=== PATIENT | female | born 1995 | race Caucasian/White ===

== ENCOUNTER 2022-09-22 14:14 | Emergency (ER) | payer OTHER, SELFPAY ==
[2022-09-22 14:27] VITALS: BP 137/78; PULSE 71; RESP 16; TEMP 36.9; O2SAT 100; BMI 30.4
--- NOTE | 2022-09-22 14:46 | DI.RAD.S_ITS ---
PROCEDURE: XR CHEST 1V INDICATIONS: chest pain TECHNIQUE: One view of the chest was acquired. COMPARISON: None. FINDINGS: Surgical changes and devices: None. Lungs and pleura: Lungs are clear. No pleural effusions or pneumothorax. Mediastinum: Mediastinal contours appear normal. Heart size is normal. Bones and chest wall: No suspicious bony lesions. Overlying soft tissues appear unremarkable. IMPRESSION: No acute cardiopulmonary abnormality. Approved by: Lauro Boyer M.D. on 09/22/2022 at 16:20
[2022-09-22 15:35] LABS: Add Manual Diff / Slide Review NO; Basophils Absolute Auto 0 /uL (0-100); Basophils Percent Auto 0.9 % (0-2); Eosinophils Absolute Auto 100 /uL (0-450); Eosinophils Percent Auto 2.3 % (2-4); Hematocrit 38.1 % (36-46); Hemoglobin 12.8 g/dL (12.0-16.0); Lymphocytes Absolute Auto 1800 /uL (1100-4500); Lymphocytes Percent Auto 33.5 % (25-40); Mean Corpuscular HGB Conc 33.7 % (30-36); Mean Corpuscular Hemoglobin 29.5 PG (26-34); Mean Corpuscular Volume 87.5 fL (80-100); Monocytes Absolute Auto 300 /uL (0-900); Monocytes Percent Auto 6.6 % (3-14); Neutrophils Absolute Auto 3000 /uL (1500-7000); Neutrophils Percent Auto 56.7 % (50-75); Platelet Count 280 X10^3/uL (150-400); Red Blood Cell Count 4.35 X10^6/uL (4.0-5.2); Red Cell Distribution Width 12.8 % (11.6-14.8); White Blood Cell Count 5.3 X10^3/uL (4.5-11.0)
[2022-09-22 15:45] LABS: Alanine Aminotransferase 30 IU/L (<35); Albumin 4.2 g/dL (3.5-5.0); Albumin Globulin Ratio 1.1 (1.0-2.8); Alkaline Phosphatase 63 U/L (38-126); Aspartate Aminotransferase 42 IU/L (14-36); BUN Creatinine Ratio 17.8 (6-22); Bilirubin Total 0.4 mg/dL (0.2-1.3); Blood Urea Nitrogen 16 mg/dL (7-17); Calcium 9.1 mg/dL (8.4-10.2); Carbon Dioxide 29 mmol/L (22-32); Chloride 102 mmol/L (98-107); Creatine Kinase 379 U/L (30-135); Estimated Glomerular Filt Rate > 60 mL/min (>60); Globulin 3.7 g/dL (1.7-4.1); Glucose 95 mg/dL (70-100); HEMOLYSIS 26 (0-50); INR 1.1 (0.9-1.3); Lipase 434 U/L (23-300); Potassium 3.8 mmol/L (3.4-5.1); Prothrombin Time 12.2 SECONDS (10.1-12.7); Sodium 136 mmol/L (137-145); Total Protein 7.9 g/dL (6.3-8.2)
[2022-09-22 15:48] LABS: PTT Partial Thromboplastin Tim 32 SECONDS (26-36)
[2022-09-22 15:55] LABS: Troponin I < 0.012 ng/mL (0.01-0.034)
[2022-09-22] MEDS: ACETAMINOPHEN 325 MG TABLET 975 MG PO (16:03)
[2022-09-22 18:16] LABS: HCG Quantitative /Beta subunit < 2.4 mIU/mL
--- NOTE | 2022-09-22 18:47 | ED_ITS ---
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 She has taken the lisinopril this morning. She notes that over the last 3 days she is been having headaches and intermittent episodes of chest pain. The chest pain does not seem to be exertional, positional or pleuritic. She reports no fevers, cough, chills. She is been having some nausea and an episode of emesis that caused a slight amount of burning through her esophagus. She does not report usual reflux or difficulties with any type of heartburn. Related Data Allergies Allergy/AdvReac Type Severity Reaction Status Date / Time No Known Drug Allergies Allergy Verified 09/22/22 17:42 Review of Systems Review of Systems Narrative: Pertinent positive and negative findings as per HPI Patient History Social History Smoking Status: Never smoker Smoking Status: Never smoker alcohol intake frequency: holidays/special occasions only Substance Use Type: does not use Exam Initial Vital Signs Initial Vital Signs: Vital Signs Temperature 98.5 F 09/22/22 14:27 Pulse Rate 71 09/22/22 14:27 Respiratory Rate 16 09/22/22 14:27 Blood Pressure 137/78 09/22/22 14:27 Pulse Oximetry 100 09/22/22 14:27 Oxygen Delivery Method Room Air 09/22/22 14:27 General: Healthy appearing, in no acute distress. Able to give a complete and coherent history. Well-nourished well-developed HEENT: Moist mucous membranes, normal sclera with reactive pupils, Neck: No JVD, supple Respiratory: Lungs are clear to auscultation, no wheezing no rales no rhonchi. Full and symmetrical air movement Cardiac: Regular rate and rhythm no murmurs with careful auscultation, no bruits Abdomen: Soft, minor tenderness in the epigastrium that reproduces the chest pain of which she is complaining, good bowel tones, no flank pain Skin: Warm and dry, no rashes Neurologic: Grossly neurologically intact with no obvious asymmetries or abnormalities Extremities: No trauma, well perfused Psych: Cooperative, appropriate insight and affect Course Orders Ordered: ED Orders 09/22/22 14:46 XR chest 1V Stat 09/22/22 14:54 EKG-12 Lead Stat 09/22/22 15:10 Complete Blood Count AUTO DIFF Stat Comprehensive Metabolic Panel Stat HCG Quantitative /Beta subunit Stat Lipase Stat Magnesium Stat PTT Partial Thromboplastin Satya Stat Prothrombin Time INR Stat Troponin & CK Cardiac Panel Stat 09/22/22 19:25 Urine Culture Stat Urine Microscopic Stat Discontinued Medications Acetaminophen (Acetaminophen 325 Mg Tablet) 975 mg PO NOW ONE Stop: 09/22/22 15:59 Last Admin: 09/22/22 16:03 Dose: 975 mg Documented By: ANNABEL Al Hydrox/Mg Hydrox/Simethicone (Mag Hydrox/Alum/Simeth 30 Ml Udc) 30 ml PO NOW ONE Stop: 09/22/22 18:56 Last Admin: 09/22/22 20:31 Dose: 30 ml Documented By: OMAR Aspirin (Aspirin 81 Mg Chew Tab) 324 mg PO NOW ONE Stop: 09/22/22 14:47 Pantoprazole Sodium (Pantoprazole 40 Mg Vial) 40 mg IV NOW ONE Stop: 09/22/22 18:56 Last Admin: 09/22/22 20:31 Dose: 40 mg Documented By: OMAR Vital Signs Vital signs: Vital Signs - 8 hr 09/22/22 14:27 09/22/22 20:23 Temperature 98.5 F Pulse Rate 71 60 Respiratory Rate 16 32 H Blood Pressure 137/78 171/89 H Pulse Oximetry 100 100 Oxygen Delivery Method Room Air MDM - Chest Pain Medical Records Data Medical records narrative: CC: Chest pain, uncertain prognosis acute finding Complicating co-morbidities: Recent diagnosis of tonsillitis possible diagnosis of hypertension, pyelonephritis, sepsis but records do need to be reviewed Data collected from: patient, Social determinants of health that may influence the patients condition: Language barrier Medical records reviewed: Unavailable Differential considered: Acute coronary syndrome, dissection, reflux, esophageal irritation from emesis yesterday, gastritis Exam documented above, pertinent findings include: Minor epigastric pain completely benign exam otherwise Lab Test results independently reviewed as above. Pertinent findings: CBC is unremarkable Chemistries are reassuring Troponin is undetectable Lipase is minimally elevated at 434 Quantitative hCG is undetectable Independently reviewed EKG as above Sinus bradycardia at a rate of 58 with no acute ischemic changes, normal intervals normal axis Imaging studies independently reviewed: Chest x-ray is unremarkable Consultations: Treatments: Re-evaluations: Discussion: 26-year-old woman with hypertension seen by primary care physician started appropriately on lisinopril 10 hydrochlorothiazide 12.5 combination pill and amlodipine 5 mg with follow-up scheduled. Because she has had chest pain for the last 3 days she was sent over for further evaluation. Workup is ent irely unremarkable and I do not suspect any evidence of congestive heart failure, stroke, hypertensive crisis, dissection, acute coronary syndrome or pulmonary embolism. She does have some minor tenderness along the left sternal border to palpation but describes this is very different from the intermittent chest pain that she would experienced previously. Her HEART score is 1 based on her blood pressure. In the absence of any acute neurologic findings or cognitive deficits aside from headache I do not think she needs additional evaluation or hospital admission. Blood pressures in the emergency department have been as low as 137/78 and as high as 171/89. Given the benign workup, follow-up available at home, available blood pressure medications. We will have her take her 5 mg of amlodipine this evening. She is given Toradol and Tylenol to help with her current headache and she is safe for discharge home Lab Data 09/22/22 15:10 09/22/22 15:10 Labs: Lab Results 09/22/22 09/22/22 09/22/22 Range/Units 15:10 15:10 15:10 WBC 5.3 (4.5-11.0) X10^3/uL RBC 4.35 (4.0-5.2) X10^6/uL Hgb 12.8 (12.0-16.0) g/dL Hct 38.1 (36-46) % MCV 87.5 (80-100) fL MCH 29.5 (26-34) PG MCHC 33.7 (30-36) % RDW 12.8 (11.6-14.8) % Plt Count 280 (150-400) X10^3/uL Neut % (Auto) 56.7 (50-75) % Lymph % (Auto) 33.5 (25-40) % Meriwether % (Auto) 6.6 (3-14) % Eos % (Auto) 2.3 (2-4) % Baso % (Auto) 0.9 (0-2) % Neut # (Auto) 3000 (3096-6983) /uL Lymph # (Auto) 1800 (6942-2893) /uL Meriwether # (Auto) 300 (0-900) /uL Eos # (Auto) 100 (0-450) /uL Baso # (Auto) 0 (0-100) /uL PT 12.2 (10.1-12.7) SECONDS INR 1.1 (0.9-1.3) APTT 32 (26-36) SECONDS Sodium 136 L (137-145) mmol/L Potassium 3.8 (3.4-5.1) mmol/L Chloride 102 (98-107) mmol/L Carbon Dioxide 29 (22-32) mmol/L BUN 16 (7-17) mg/dL Creatinine 0.90 (0.52-1.04) mg/dL Estimated GFR > 60 (>60) mL/min BUN/Creatinine Ratio 17.8 (6-22) Glucose 95 (70-100) mg/dL Calcium 9.1 (8.4-10.2) mg/dL Magnesium 2.0 (1.6-2.3) mg/dL Total Bilirubin 0.4 (0.2-1.3) mg/dL AST 42 H (14-36) IU/L ALT 30 (<35) IU/L Alkaline Phosphatase 63 (38-126) U/L Total Creatine Kinase 379 H (30-135) U/L Troponin I < 0.012 (0.01-0.034) ng/mL Total Protein 7.9 (6.3-8.2) g/dL Albumin 4.2 (3.5-5.0) g/dL Globulin 3.7 (1.7-4.1) g/dL Albumin/Globulin Ratio 1.1 (1.0-2.8) Lipase 434 H (23-300) U/L HCG, Quant mIU/mL Urine RBC (0-5/HPF) Urine WBC (0-5/HPF) Ur Squamous Epith Cells (0-5/HPF) Urine Bacteria (None) Ur Culture Indicated? 09/22/22 09/22/22 Range/Units 15:10 19:25 WBC (4.5-11.0) X10^3/uL RBC (4.0-5.2) X10^6/uL Hgb (12.0-16.0) g/dL Hct (36-46) % MCV (80-100) fL MCH (26-34) PG MCHC (30-36) % RDW (11.6-14.8) % Plt Count (150-400) X10^3/uL Neut % (Auto) (50-75) % Lymph % (Auto) (25-40) % Meriwether % (Auto) (3-14) % Eos % (Auto) (2-4) % Baso % (Auto) (0-2) % Neut # (Auto) (1438-3824) /uL Lymph # (Auto) (1754-0683) /uL Meriwether # (Auto) (0-900) /uL Eos # (Auto) (0-450) /uL Baso # (Auto) (0-100) /uL PT (10.1-12.7) SECONDS INR (0.9-1.3) APTT (26-36) SECONDS Sodium (137-145) mmol/L Potassium (3.4-5.1) mmol/L Chloride (98-107) mmol/L Carbon Dioxide (22-32) mmol/L BUN (7-17) mg/dL Creatinine (0.52-1.04) mg/dL Estimated GFR (>60) mL/min BUN/Creatinine Ratio (6-22) Glucose (70-100) mg/dL Calcium (8.4-10.2) mg/dL Magnesium (1.6-2.3) mg/dL Total Bilirubin (0.2-1.3) mg/dL AST (14-36) IU/L ALT (<35) IU/L Alkaline Phosphatase (38-126) U/L Total Creatine Kinase (30-135) U/L Troponin I (0.01-0.034) ng/mL Total Protein (6.3-8.2) g/dL Albumin (3.5-5.0) g/dL Globulin (1.7-4.1) g/dL Albumin/Globulin Ratio (1.0-2.8) Lipase (23-300) U/L HCG, Quant < 2.4 mIU/mL Urine RBC 1-5/hpf (0-5/HPF) Urine WBC 1-5/hpf (0-5/HPF) Ur Squamous Epith Cells 0-1 /hpf (0-5/HPF) Urine Bacteria Occasional (0-1) (None) Ur Culture Indicated? Specimen cultured Point of Care Testing Test Results Negative Urine Dip Bedside Urine Glucose Negative Bedside Urine Bilirubin - Negative Bedside Urine Ketone - Negative Urine Specific Correll 1.030 Bedside Urine Occult Blood - Negative Bedside Urine pH 6.0 Bedside Urine Protein - Negative Bedside Urine Urobilinogen - Negative Bedside Urine Nitrite - Negative Bedside Urine Leukocytes + 70 Esterase MDM Narrative Medical decision making narrative: CC: Chest pain, uncertain prognosis acute finding Complicating co-morbidities: Recent diagnosis of tonsillitis possible diagnosis of hypertension, pyelonephritis, sepsis but records do need to be reviewed Data collected from: patient, Social determinants of health that may influence the patients condition: Lang uage barrier Medical records reviewed: Unavailable Differential considered: Acute coronary syndrome, dissection, reflux, esophageal irritation from emesis yesterday, gastritis Exam documented above, pertinent findings include: Minor epigastric pain completely benign exam otherwise Lab Test results independently reviewed as above. Pertinent findings: CBC is unremarkable Chemistries are reassuring Troponin is undetectable Lipase is minimally elevated at 434 Quantitative hCG is undetectable Independently reviewed EKG as above Sinus bradycardia at a rate of 58 with no acute ischemic changes, normal intervals normal axis Imaging studies independently reviewed: Chest x-ray is unremarkable Consultations: Treatments: Oral amlodipine, parenteral Toradol, oral Tylenol Re-evaluations: Discussion: 26-year-old woman with hypertension seen by primary care physician started appropriately on lisinopril 10 hydrochlorothiazide 12.5 combination pill and amlodipine 5 mg with follow-up scheduled. Because she has had chest pain for the last 3 days she was sent over for further evaluation. Workup is entirely unremarkable and I do not suspect any evidence of congestive heart failure, stroke, hypertensive crisis, dissection, acute coronary syndrome or pulmonary embolism. She does have some minor tenderness along the left sternal border to palpation but describes this is very different from the intermittent chest pain that she would experienced previously. Her HEART score is 1 based on her blood pressure. In the absence of any acute neurologic findings or cognitive deficits aside from headache I do not think she needs additional evaluation or hospital admission. Blood pressures in the emergency department have been as low as 137/78 and as high as 171/89. Given the benign workup, follow-up available at home, available blood pressure medications. We will have her take her 5 mg of amlodipine this evening. She is given Toradol and Tylenol to help with her current headache and she is safe for discharge home Discharge Plan Departure Patient Disposition: Home Clinical Impression: Atypical chest pain, Hypertension, Headache Instructions: DI for High Blood Pressure, DI for Atypical Chest Pain Activity Restrictions/Additional Instructions: Thank you for coming in today With your elevated blood pressure and the 3 days of intermittent chest pain I believe further evaluation was entirely appropriate. Fortunately, I am not finding any signs of stroke, heart attack, heart attack like syndromes, blood clots in your lungs, kidney injury or any reasons for additional imaging or hospitalization today. I believe the medications that had been prescribed for you are an excellent 1st choice. They do typically need a couple of days to work. Please continue taki ng the lisinopril hydrochlorothiazide 1st thing in the morning and the amlodipine in the evening. I want you did check your blood pressure 2 to 3 hours after the lisinopril dosing in the morning and keep track of the numbers. Please check once daily and simply write the numbers down to discuss with your primary care doctor regarding your blood pressure treatment. If you find that you are getting worse or develop any new symptoms, please feel free to return to the emergency department for further evaluation. Stand Alone Forms: Patient Portal/API
[2022-09-22 20:07] LABS: Bacteria Urine Occasional (0-1); RBC Urine 1-5/HPF (0-5/HPF); Squamous Epithelial Cell Urine 0-1 /HPF (0-5/HPF); WBC Urine 1-5/HPF (0-5/HPF)
[2022-09-22 20:08] LABS: Culture Indicated Urine Specimen Cultured
[2022-09-22 20:23] VITALS: BP 171/89; PULSE 60; RESP 32; O2SAT 100
[2022-09-22 20:30] VITALS: BP 160/82; PULSE 61; RESP 19; O2SAT 100
[2022-09-22] MEDS: MAG HYDROX/ALUM/SIMETH 30 ML UDC PO (20:31)
[2022-09-22] MEDS: PANTOPRAZOLE 40 MG VIAL IV (20:31)
[2022-09-22 21:00] VITALS: BP 138/74; PULSE 53; RESP 18; O2SAT 100
[2022-09-22 21:30] VITALS: BP 152/83; PULSE 64; RESP 23; O2SAT 100
[2022-09-22] MEDS: KETOROLAC 30 MG/ML VIAL 15 MG IV (21:56)
[2022-09-22] MEDS: ACETAMINOPHEN 325 MG TABLET 650 MG PO (21:56)
[2022-09-22 22:00] VITALS: BP 148/90; PULSE 52; RESP 16; O2SAT 100
== END 2022-09-22 22:17 | disposition home or self-care (01) ==
PROVIDERS: Emergency Medicine; Nurse Practitioner Critical Care Medicine; Emergency Provider Emergency Medicine
DX: R07.89 Other chest pain (principal); I10 Essential (primary) hypertension; R51.9 Headache, unspecified
CPT/HCPCS: 36415; 71045; 80053; 81003; 81015; 81025; 82550; 83690; 83735; 84484; 84702; 85025; 85610; 85730; 87086; 93005; 96374; 96375; 99284; C9113; J1885